=== PATIENT | female | born 1980 | race Hispanic/Latino ===

== ENCOUNTER 2019-08-04 13:55 | Emergency (ER) | payer OTHER, BC ==
[2019-08-04] MEDS ORDERED: ACETAMINOPHEN EXTRA STRENGTH 500 MG TABLET ONE (15:10)
== END 2019-08-04 17:32 | disposition home or self-care (01) ==
LOC: EDH 13:55
DX: S16.1XXA Strain of muscle, fascia and tendon at neck level, initial encounter (principal); S76.011A Strain of muscle, fascia and tendon of right hip, initial encounter; S60.211A Contusion of right wrist, initial encounter; S60.221A Contusion of right hand, initial encounter; S09.90XA Unspecified injury of head, initial encounter; J45.909 Unspecified asthma, uncomplicated; M32.9 Systemic lupus erythematosus, unspecified; Z88.1 Allergy status to other antibiotic agents; Z88.6 Allergy status to analgesic agent; Z88.8 Allergy status to other drugs, medicaments and biological substances; Z98.890 Other specified postprocedural states; W01.0XXA Fall on same level from slipping, tripping and stumbling without subsequent striking against object, initial encounter; Y93.01 Activity, walking, marching and hiking; Y92.89 Other specified places as the place of occurrence of the external cause; Y99.8 Other external cause status
CPT/HCPCS: 29125; 70450; 72125; 72192; 73110